=== PATIENT | female | born 1965 | race Caucasian/White ===

== ENCOUNTER 2023-03-17 08:01 | Day surgery (SDC) | payer BC ==
[~2023-03-17 08:01] MED LIST: Lactated Ringers 1,000 ML IV SCH; fentaNYL 100 MCG/2 ML SDV ONE; propofoL 50 ML ONE
[2023-03-17] MEDS ORDERED: Lactated Ringers 1,000 ML IV SCH (10:00)
[2023-03-17 10:18] VITALS: BP 114/62; PULSE 54
== END 2023-03-17 10:35 | disposition home or self-care (01) ==
LOC: MW.SDS 08:01
PROVIDERS: ATTEND Surgery
DX: Z12.11 Encounter for screening for malignant neoplasm of colon (principal); D12.5 Benign neoplasm of sigmoid colon; K62.1 Rectal polyp; I10 Essential (primary) hypertension; R73.03 Prediabetes; E66.01 Morbid (severe) obesity due to excess calories; Z79.899 Other long term (current) drug therapy; Z80.0 Family history of malignant neoplasm of digestive organs; Z68.41 Body mass index [BMI] 40.0-44.9, adult; Z90.710 Acquired absence of both cervix and uterus; Z98.890 Other specified postprocedural states
CPT/HCPCS: 45380; 45381; J2704; J3010; J7120; 00811